=== PATIENT | female | born 2000 | race Caucasian/White ===

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

== ENCOUNTER → 2022-08-16 | Day surgery (SDC) | payer OTHER ==
[~2022-08-16] VITALS: Ht 162.5 cm; Wt 113.4 kg
[~2022-08-16] MED LIST changes: +OCUFLOX 0.3% 5 M5 ML OPH
[2022-08-16 08:43] VITALS: BP 112/61
[2022-08-16 08:57] VITALS: BP 93/58
[2022-08-16 09:17] VITALS: BP 113/59
== END | disposition home or self-care (01) ==
LOC: SDC 08-11 14:00
PROVIDERS: ATTEND Specialist
DX: H65.493 Other chronic nonsuppurative otitis media, bilateral (principal); Z87.891 Personal history of nicotine dependence

== ENCOUNTER 2024-04-07 10:32 | Emergency (ER) | payer OTHER ==
[~2024-04-07] VITALS: Ht 162.5 cm; Wt 104.3 kg
[2024-04-07] MEDS ORDERED: ACETAMINOPHEN 325 MG TAB PO ONE (11:55)
== END 2024-04-07 12:31 | disposition home or self-care (01) ==
LOC: ED 10:32
DX: M54.2 Cervicalgia (principal); M25.511 Pain in right shoulder; V47.5XXA Car driver injured in collision with fixed or stationary object in traffic accident, initial encounter; Y93.89 Activity, other specified; Y92.410 Unspecified street and highway as the place of occurrence of the external cause; Y99.8 Other external cause status